=== PATIENT | female | born 1955 | race Caucasian/White ===

== ENCOUNTER 2016-11-02 13:18 | Day surgery (SDC) | payer OTHER | END 2016-11-02 14:28 | disposition home or self-care (01) | LOC: GIL 13:18 | PROVIDERS: ATTEND Internal Medicine | DX: K92.1 Melena (principal); Z53.9 Procedure and treatment not carried out, unspecified reason ==

== ENCOUNTER 2016-12-04 11:12 | Day surgery (SDC) | payer OTHER ==
[~2016-12-04] VITALS: Ht 160 cm; Wt 68.1 kg
[2016-12-04] MEDS ORDERED: ANTIDEPRESSANT (12:18)
[2016-12-04 13:42] VITALS: BP 128/78; PULSE 80; RESP 18
--- NOTE | 2016-12-04 14:10 | OPPN ---
Date/Time of Note Date/Time of Note DATE: 12/04/16 TIME: 14:07 Operative Report Preoperative Diagnosis SCREENING COLONOSCOPY Postoperative Diagnosis DIVERTICULOSIS MILD LEFT COLON Operation/Procedure Performed COLONOSCOPY Provider: ENEIDA DUMONT MD Anesthesia Type: moderate sedation (VERSED 4MG/FENTANYL 75 MCG) Estimated blood loss: none Transfusion Required: no Specimen: none Grafts/Implants: none Complications: no ENEIDA DUMONT MD Dec 04, 2016 14:10
[2016-12-04] MEDS ORDERED: FENTAnyl 50 MCG/ML VIAL ONE (14:27)
[2016-12-04] MEDS ORDERED: MIDAZOLAM 1 MG/ML 2 ML INJ ONE ×2 (14:27)
[2016-12-04 14:30] VITALS: BP 111/72; PULSE 68; RESP 14
--- NOTE | 2016-12-04 21:46 | GILP ---
DATE OF PROCEDURE: 12/04/2016 PREOPERATIVE DIAGNOSIS: Screening colonoscopy. POSTOP DIAGNOSIS: Mild diverticulosis left colon, otherwise normal colonoscopy. DESCRIPTION OF PROCEDURE: The patient was put in left lateral decubitus. After obtaining informed consent, she was given 4 mg IV Versed and 75 mcg of fentanyl. Rectal exam done, which is normal. Then advanced a Olympus video pediatric colonoscope all the way to the cecum. The ileocecal valve and appendiceal opening identified, photography done. Cecum, ascending colon, transverse colon, descending colon, normal. In the sigmoid colon very few diverticula noted there were documented by taking a picture. No diverticulitis. In the rectum including retroflexion normal and rectosigmoid normal. Upon removal of scope the patient had no complication. PLAN: Will be to follow her as outpatient p.r.n. She will follow up with the primary MD. Repeat colonoscopy in 10 years. Dictated By: Vanessa Taylor MD /[email or web address] /Document#: [id number] ; Dr. Araya
== END 2016-12-04 15:37 | disposition home or self-care (01) ==
LOC: GIL 11:12
PROVIDERS: ATTEND Internal Medicine
DX: Z12.11 Encounter for screening for malignant neoplasm of colon (principal); K92.1 Melena; K57.90 Diverticulosis of intestine, part unspecified, without perforation or abscess without bleeding
CPT/HCPCS: 45378; J2250; J3010